=== PATIENT | female | born 1995 | race African-American/Black ===

== ENCOUNTER 2017-09-20 04:08 | Emergency (ER) | payer BC ==
[~2017-09-20] VITALS: Ht 165.1 cm; Wt 104.3 kg
[2017-09-20] MEDS ORDERED: NOHOMEMEDICATIONS (04:13)
[2017-09-20 05:15] VITALS: BP 115/60
== END 2017-09-20 05:20 | disposition home or self-care (01) ==
LOC: ER 04:08
DX: S93.402A Sprain of unspecified ligament of left ankle, initial encounter (principal); Z88.0 Allergy status to penicillin; W19.XXXA Unspecified fall, initial encounter; Y93.89 Activity, other specified; Y92.89 Other specified places as the place of occurrence of the external cause; Y99.8 Other external cause status

== ENCOUNTER 2019-01-27 10:32 | Emergency (ER) | payer OTHER ==
[~2019-01-27] VITALS: Ht 167.6 cm; Wt 81.7 kg
[~2019-01-27 10:32] MED LIST: NOHOMEMEDICATIONS
[2019-01-27 10:33] VITALS: BP 126/62
[2019-01-27] MEDS ORDERED: MOBIC7.5 MG PO (11:14)
== END 2019-01-27 11:25 | disposition home or self-care (01) ==
LOC: ER 10:32
DX: S93.692A Other sprain of left foot, initial encounter (principal); M72.2 Plantar fascial fibromatosis; R51 Headache; Z88.1 Allergy status to other antibiotic agents; Z88.0 Allergy status to penicillin; V43.52XA Car driver injured in collision with other type car in traffic accident, initial encounter; Y93.89 Activity, other specified; Y92.89 Other specified places as the place of occurrence of the external cause; Y99.8 Other external cause status

== ENCOUNTER 2019-09-09 02:01 | Emergency (ER) | payer OTHER ==
[~2019-09-09] VITALS: Ht 165.1 cm; Wt 98.0 kg
[~2019-09-09 02:01] MED LIST changes: +MOBIC7.5 MG PO
[2019-09-09 02:06] VITALS: BP 136/77
== END 2019-09-09 02:54 | disposition short-term general hospital (02) ==
LOC: ER 02:01
DX: O26.893 Other specified pregnancy related conditions, third trimester (principal); R10.30 Lower abdominal pain, unspecified; Z3A.32 32 weeks gestation of pregnancy; Z88.0 Allergy status to penicillin; Z88.1 Allergy status to other antibiotic agents

== ENCOUNTER 2021-10-01 08:56 | Emergency (ER) | payer BC, OTHER ==
[~2021-10-01] VITALS: Ht 167.6 cm; Wt 65.8 kg
[2021-10-01 09:00] VITALS: BP 110/72
--- NOTE | 2021-10-01 15:28 | NUR ---
ATTEMPTED TO CALL PATIENT AT THIS TIME TO INFORM THEM OF POSITIVE RESULT, PHONE NUMBER SAYS DISCONNECTED.
== END 2021-10-01 09:45 | disposition home or self-care (01) ==
LOC: ER 08:56
PROVIDERS: Emergency Medicine
DX: U07.1 COVID-19 (principal); J02.9 Acute pharyngitis, unspecified; R05.9 Cough, unspecified; Z90.89 Acquired absence of other organs; Z88.1 Allergy status to other antibiotic agents; Z88.0 Allergy status to penicillin